=== PATIENT | male | born 1975 | race Caucasian/White ===

== ENCOUNTER 2023-02-11 10:42 | Observation (INO) ==
[2023-02-11] MEDS ORDERED: SODIUM CHLORIDE 0.9% 1000ML 1,000 ML IV STA (11:09)
--- NOTE | 2023-02-11 11:17 | Emergency Department Note ---
ED Provider Note History of Present Illness Chief Complaint: Abdominal Pain Stated Complaint: ABDOMINAL PAIN; RIB PAIN Time Seen by Provider: 02/11/23 10:58 47-year-old male who presents the emergency department with complaint of progressively worsening right lower quadrant abdominal pain. The patient reports that he started to notice some discomfort in the abdomen on Friday. He did take some ibuprofen that helped with the symptoms. The patient reports that the pain has worsened with loose stools. The patient also reports that he was recently on clindamycin antibiotics for a left foot cellulitis. There is antibiotics were started on 02/04. He reports that the foot looks much better. Patient also reports that he was also recently in to see his family doctor for symptoms concerning for Lyme disease. The patient reports that he did have testing that was negative. The patient has had chills at home, but has not checked his temperature. He currently rates his discomfort an 8 out of 10. Home Medications Medication Instructions Recorded Confirmed Type clindamycin HCl 1 cap PO TID 02/11/23 02/11/23 History multivitamin 1 tab PO DAILY 02/11/23 02/11/23 History Allergies Allergy/AdvReac Type Severity Reaction Status Date / Time No Known Allergies Allergy Verified 02/03/23 11:49 Past Med/Surg History Medical History Headache Migraine headache Surgical History No pertinent past surgical history Family History Mother Diabetes, Onset Age: 58 oral Stroke, Onset Age: 67 no sequella Grandfather (Paternal) Myocardial infarction 70 [place] Father Prostate cancer, Onset Age: 55 EDITA at age 70 Sister Stroke, Onset Age: 45 rt arm weakness and speech impediment. Grandfather (Maternal) Leukemia, Onset Age: 53 Denies family history of Ovarian cancer Breast cancer Lung cancer Hypertension Social History Smoking Status: Never smoker Second Hand Exposure: No; Do You Dip or Chew Tobacco: No; Hx Alcohol Use: No Hx Substance Use: No Preferred Language: Welsh Communication Ability: Effective Hearing Ability: Normal Vice [employer] Network Required: No marital status: Current Living Situation: Family Current Living Situation Comment: spouse and 6 children current occupational status: employed current occupation: self employed How many Children do You have: 6 Feels Safe at Home: Yes Childhood Exposure to Second-Hand Smoke: No Seatbelt Use: always Sunscreen Use: Yes Physical Exam Vital Signs Vital Signs - 24 hr 02/11/23 10:47 02/11/23 11:33 02/11/23 13:08 Temperature 36.8 C Temperature Source Temporal Artery Scan Pulse Rate 114 H Pulse Rate [Right Radial] 96 H Pulse Rhythm Regular Pulse Rhythm [Right Radial] Respiratory Rate 20 15 16 Respiratory Effort / Characteristics Non-Labored Spontaneous Non-Labored Non-Labored Respiratory Depth Normal Normal Normal Respiratory Pattern Regular Regular Blood Pressure 115/68 Blood Pressure [Right Arm] 125/78 Blood Pressure Mean 83 Blood Pressure Mean [Right Arm] 93 Blood Pressure Position [Right Arm] Pulse Oximetry 95 93 Oxygen Delivery Method Room Air Room Air Room Air Sepsis Recent Fever Within 48 Hours No Sepsis New/Unexplained Change in Mental Status N/A Sepsis Action Taken by Nursing No Action Required 02/11/23 15:02 02/11/23 15:05 Temperature 36.7 C Temperature Source Oral Pulse Rate 103 H Pulse Rate [Right Radial] 94 H Pulse Rhythm Pulse Rhythm [Right Radial] Regular Respiratory Rate 16 18 Respiratory Effort / Characteristics Non-Labored Spontaneous Respiratory Depth Normal Respiratory Pattern Regular Blood Pressure 125/67 Blood Pressure [Right Arm] 119/77 Blood Pressure Mean Blood Pressure Mean [Right Arm] 91 Blood Pressure Position [Right Arm] Lying Pulse Oximetry 98 92 Oxygen Delivery Method Room Air Room Air Sepsis Recent Fever Within 48 Hours Sepsis New/Unexplained Change in Mental Status Sepsis Action Taken by Nursing CONSTITUTIONAL: Healthy and well nourished. Patient appears in mild to moderate discomfort. HEENT: No scleral icterus or conjunctival injection. RESPIRATORY: Clear to auscultation bilaterally with no wheezing, crackles, rhonchi or stridor. CARDIOVASCULAR: Regular rate and rhythm with no murmurs, rubs or gallops. GASTROINTESTINAL: Bowel sounds present in all quadrants. Patient has a positive McBurney's point tenderness. Negative Rovsing sign, psoas/obturator sign or CVA tenderness. Positive heeltap. No abdominal rigidity, guarding or rebound. MUSCULOSKELETAL: Full range of motion of all joints without discomfort. INTEGUMENTARY: No rash or other significant dermatologic conditions noted. HEMATOLOGIC: No ecchymosis or petechiae. PSYCHIATRIC: Positive affect. NEUROLOGIC: No focal neurologic deficits noted. Course Course Patient history and physical exam were performed. Nurses notes were reviewed. Vital signs were reviewed, showing a mild tachycardia. The patient is afebrile. I did review outside medical records, showing that the patient did have a Western blot test performed, that was positive for IgM, negative IgG. Last office notes are documented on 02/03/2023, with presenting complaints of a fever that was suspected to be a viral infection. Further review of labs shows neg ative Babesia, Borrelia, Anaplasma and Ehrlichia tests. IV access was established, and labs were drawn. The patient was hydrated with a liter of normal saline. He refused any analgesics or antiemetics. Review of labs shows a notable leukocytosis with a white count of over 18,000, neutrophilic shift and no bandemia. CMP shows a mild hyponatremia of 132, elevated random glucose of 137, and total bilirubin of 2.1. LFTs and lipase are normal. Urinalysis did not show any hematuria or signs of infection. CT with IV contrast of the abdomen and pelvis shows evidence for an acute cholecystitis. Findings were discussed with Dr. Lin, our City Auditor, as well as Dr. Perez, general surgeon electronic commerce specialist today. Dr. Perez did come to the emergency department for further evaluation. Please see his dictation for further surgical treatment and disposition. I did order IV Zosyn at the time of consultation. The patient refused any further analgesics or antiemetics. Administered Medications Discontinued Medications Bupivacaine HCl/Epinephrine Bitart (Bupivacaine/Epinephrine 0.25% 1:200,000 30 Ml Vial) Confirm Administered Dose 30 ml .ROUTE .STK-MED ONE Stop: 02/11/23 15:15 Last Admin: 02/11/23 16:54 Dose: 30 ml Documented By: DAIANA Sodium Chloride (Nss 1000ml) 1,000 mls @ 999 mls/hr IV .Q1H1M STA Stop: 02/11/23 12:09 Last Infusion: 02/11/23 12:40 Dose: 999 mls/hr Documented By: JEAN MARIE Admin: 02/11/23 11:36 Dose: 999 mls/hr Documented By: JEAN MARIE Piperacillin Sod/Tazobactam Sod (Zosyn) 4.5 gm in 120 mls @ 240 mls/hr IV NOW ONE Stop: 02/11/23 14:04 Last Infusion: 02/11/23 15:06 Dose: 240 mls/hr Documented By: JEAN MARIE Admin: 02/11/23 14:11 Dose: 240 mls/hr Documented By: JEAN MARIE Ioversol (Optiray 350 500ml) 89 ml IV ONCE ONE Stop: 02/11/23 13:01 Last Admin: 02/11/23 13:00 Dose: 89 ml Documented By: ABA Medical Decision Making Medical Records Attestation: I reviewed the patient's medical records. Home Medications was personally reviewed by wy Laboratory Data Attestation: I reviewed the patient's lab results. 02/11/23 11:27 02/11/23 11:27 Lab Results 02/11/23 02/11/23 02/11/23 Range/Units 11:27 11:27 13:05 WBC 18.46 H (4.8-10.8) K/ul RBC 4.19 L (4.70-6.10) M/uL Hgb 13.2 L (14.0-18.0) g/dl Hct 37.4 L (42.0-52.0) % MCV 89.3 (80.0-100.0) fL MCH 31.5 (25.0-34.0) pg MCHC 35.3 (32.0-36.0) g/dL RDW Std Deviation 41.6 (36.4-46.3) fL RDW Coeff of Akanksha 12.7 (11.5-14.5) % Plt Count 326 (130-400) K/uL MPV 9.1 L (9.4-12.4) fL Immature Gran % (Auto) 0.7 % Neut % (Auto) 86.7 % Lymph % (Auto) 7.1 % [place] % (Auto) 5.2 % Eos % (Auto) 0.1 % Baso % (Auto) 0.2 % Neut # (Auto) 16.02 H (1.40-6.50) K/uL Lymph # (Auto) 1.31 (1.2-3.4) K/uL [place] # (Auto) 0.96 H (0.11-0.59) K/uL Eos # (Auto) 0.01 (0-0.50) K/uL Baso # (Auto) 0.03 (0-0.2) K/uL Immature Gran # (Auto) 0.13 (0.01-0.20) K/uL Sodium 132 L (136-145) mmol/L Potassium 4.2 (3.5-5.1) mmol/L Chloride 98 (98-107) mmol/L Carbon Dioxide 25 (21-32) mmol/L Anion Gap 9 (3-11) BUN 15 (6-23) mg/dl Creatinine 1.09 (0.6-1.4) mg/dl Est Cr Clr Drug Dosing 104.9 ml/min Est GFR ( Amer) 93.8 ml/min Est GFR (Non-Af Amer) 81.0 ml/min BUN/Creatinine Ratio 13.8 (10-20) Glucose 137 H (70-99(Fasting)) mg/dl Calcium 9.2 (8.6-10.3) mg/dl Total Bilirubin 2.1 H (0.2-1.0) mg/dl AST 18 (13-39) U/L ALT 32 (7-52) U/L Alkaline Phosphatase 65 (34-104) U/L Total Protein 7.6 (6.0-8.3) gm/dl Albumin 4.0 (3.4-5.0) gm/dl Globulin 3.6 (2.5-4.0) gm/dl Albumin/Globulin Ratio 1.1 (0.9-2) Lipase 30 (11-82) U/L Urine Color [place] Urine Appearance Cloudy A (Clear) Urine pH 5.5 (4.5-7.5) Ur Specific [place] 1.020 (1.000-1.030) Urine Protein 1+ H (Negative) Urine Glucose (UA) Negative (Negative) Urine Ketones Negative (Negative) Urine Blood Negative (Negative) Urine Nitrite Negative (Negative) Urine Bilirubin Negative (Negative) Urine Urobilinogen Negative (Negative) Ur Leukocyte Esterase Negative (Negative) Urine WBC (Auto) 1-5 (0-5) /hpf Urine RBC (Auto) 5-10 H (0-4) /hpf U Hyaline Cast (Auto) 10-30 H (0-5) /lpf U Epithel Cells (Auto) 10-20 H (0-5) /lpf Urine Bacteria (Auto) Negative (Negative) SARS-CoV-2, RNA, NAAT (NEGATIVE) 02/11/23 Range/Units Unknown WBC (4.8-10.8) K/ul RBC (4.70-6.10) M/uL Hgb (14.0-18.0) g/dl Hct (42.0-52.0) % MCV (80.0-100.0) fL MCH (25.0-34.0) pg MCHC (32.0-36.0) g/dL RDW Std Deviation (36.4-46.3) fL RDW Coeff of Akanksha (11.5-14.5) % Plt Count (130-400) K/uL MPV (9.4-12.4) fL Immature Gran % (Auto) % Neut % (Auto) % Lymph % (Auto) % [place] % (Auto) % Eos % (Auto) % Baso % (Auto) % Neut # (Auto) (1.40-6.50) K/uL Lymph # (Auto) (1.2-3.4) K/uL [place] # (Auto) (0.11-0.59) K/uL Eos # (Auto) (0-0.50) K/uL Baso # (Auto) (0-0.2) K/uL Immature Gran # (Auto) (0.01-0.20) K/uL Sodium (136-145) mmol/L Potassium (3.5-5.1) mmol/L Chloride (98-107) mmol/L Carbon Dioxide (21-32) mmol/L Anion Gap (3-11) BUN (6-23) mg/dl Creatinine (0.6-1.4) mg/dl Est Cr Clr Drug Dosing ml/min Est GFR ( Amer) ml/min Est GFR (Non-Af Amer) ml/min BUN/Creatinine Ratio (10-20) Glucose (70-99(Fasting)) mg/dl Calcium (8.6-10.3) mg/dl Total Bilirubin (0.2-1.0) mg/dl AST (13-39) U/L ALT (7-52) U/L Alkaline Phosphatase (34-104) U/L Total Protein (6.0-8.3) gm/dl Albumin (3.4-5.0) gm/dl Globulin (2.5-4.0) gm/dl Albumin/Globulin Ratio (0.9-2) Lipase (11-82) U/L Urine Color Urine Appearance (Clear) Urine pH (4.5-7.5) Ur Specific [place] (1.000-1.030) Urine Protein (Negative) Urine Glucose (UA) (Negative) Urine Ketones (Negative) Urine Blood (Negative) Urine Nitrite (Negative) Urine Bilirubin (Negative) Urine Urobilinogen (Negative) Ur Leukocyte Esterase (Negative) Urine WBC (Auto) (0-5) /hpf Urine RBC (Auto) (0-4) /hpf U Hyaline Cast (Auto) (0-5) /lpf U Epithel Cells (Auto) (0-5) /lpf Urine Bacteria (Auto) (Negative) SARS-CoV-2, RNA, NAAT NEGATIVE (NEGATIVE) Imaging Data Attestation: I personally reviewed and interpreted this imaging study as follows: My Impression: My interpretation of the CT with IV contrast of the abdomen and pelvis shows evidence for acute cholecystitis. No evidence for pancreatitis, appendicitis, bowel obstruction or free air. Radiologist report was also reviewed with concurrence. Radiologist's Impression: Abdomen/Pelvis CT 02/11/23 11:[address] WITH IV CONTRAST CT DOSE: 1687.20 mGy.cm HISTORY: Right lower quadrant abdominal pain. TECHNIQUE: Multiaxial CT images of the abdomen and pelvis were performed following the use of intravenous contrast. A dose lowering technique was utilized adhering to the principles of ALARA. COMPARISON STUDY: None. FINDINGS: Bibasilar densities most pronounced within the right lower lobe. These favor atelectasis. A pneumonia could also have a similar appearance. No pneumoperitoneum. No pneumatosis. 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 There is a 2.5 cm diverticulum at the distal duodenum. Hepatic steatosis. The main portal vein is patent. The spleen, adrenal glands, pancreas, and kidneys are unremarkable. No hydronephrosis. Mild periportal lymphadenopathy. This is likely reactive. No retroperitoneal lymphadenopathy. Normal caliber abdominal aorta. There is trace ascites noted. The gallbladder is distended and demonstrates a diffusely thickened wall with pericholecystic fluid and inflammatory change. This is consistent with an acute cholecystitis. There are few small gallstones identified. Normal caliber common bile duct. There is thickening within the adjacent hepatic flexure of the colon and duodenum. This likely reactive to the suspected acute cholecystitis. No evidence for a bowel obstruction. Normal bladder. Normal appendix. IMPRESSION: 1. Above findings consistent with acute cholecystitis. Urgent surgical consultation recommended. 2. Thickening within the adjacent hepatic flexure of the colon and duodenum is likely reactive. 3. Bibasilar densities are nonspecific but favor atelectasis. A pneumonia could also have a similar appearance. 4. Hepatic steatosis. 5. Trace ascites. ACT 112: Negative or not required by law. Electronically signed by: Sy Garcia M.D. 02/11/2023 1:23 PM MDM Narrative See ED Course section for further details of today's visit. The patient presents with complaint of right lower quadrant abdominal pain that seems to be worsened with ambulation and movement. Clinical examination was concerning for acute appendicitis. CT with IV contrast of the abdomen and pelvis was performed, showing evidence for acute cholecystitis. Laboratory studies that show a slightly elevated bilirubin, otherwise lipase is normal, therefore I do not suspect cholecystitis. Choledocholithiasis was also considered. Urinalysis does not show hematuria or signs of infection, and without any hydronephrosis on CT imaging, I do not suspect obstructive uropathy or pyelonephritis. Impression Acute cholecystitis Discharge Plan Visit Data Chief Complaint: Abdominal Pain Stated Complaint: ABDOMINAL PAIN; RIB PAIN ED Provider: Daniel Lin ED Midlevel Provider: Angelo King Discharge Problem: Acute cholecystitis Patient Disposition: Admitted As Inpatient Discharge Instructions Interventions: ED Discharge Assessment Last Done: 02/11/23 15:02
[2023-02-11 11:46] LABS: Basophils # (auto) 0.03 K/uL (0-0.2); Basophils % (auto) 0.2 %; Eosinophils # (auto) 0.01 K/uL (0-0.50); Eosinophils % (auto) 0.1 %; Hematocrit (blood only) 37.4 % (42.0-52.0); Hemoglobin 13.2 g/dl (14.0-18.0); Immature Granulocytes # (auto) 0.13 K/uL (0.01-0.20); Immature Granulocytes % (auto) 0.7 %; Lymphocytes # (auto) 1.31 K/uL (1.2-3.4); Lymphocytes % (auto) 7.1 %; Mean Corpuscular Hemoglobin 31.5 pg (25.0-34.0); Mean Corpuscular Hgb Conc 35.3 g/dL (32.0-36.0); Mean Corpuscular Volume 89.3 fL (80.0-100.0); Mean Platelet Volume 9.1 fL (9.4-12.4); Monocytes # (auto) 0.96 K/uL (0.11-0.59); Monocytes % (auto) 5.2 %; Neutrophils # (auto) 16.02 K/uL (1.40-6.50); Neutrophils % (auto) 86.7 %; Platelet Count 326 K/uL (130-400); RDW Coefficient of Variation 12.7 % (11.5-14.5); RDW Standard Deviation 41.6 fL (36.4-46.3); Red Blood Count 4.19 M/uL (4.70-6.10); White Blood Count 18.46 K/ul (4.8-10.8)
[2023-02-11 12:26] LABS: Albumin Globulin Ratio 1.1 (0.9-2); BUN Creatinine Ratio 13.8 (10-20); Bilirubin,Total 2.1 mg/dl (0.2-1.0); Calcium 9.2 mg/dl (8.6-10.3); Creatinine Clr Calc Pharmacy 104.9 ml/min; Est GFR (African American) 93.8 ml/min; Globulin 3.6 gm/dl (2.5-4.0); Potassium 4.2 mmol/L (3.5-5.1); Total Protein 7.6 gm/dl (6.0-8.3)
[2023-02-11] MEDS ORDERED: OPTIRAY 350 500ml IV ONE (13:00)
[2023-02-11 13:23] LABS: Appearance Urine Cloudy (Clear); Bacteria Urine Automated Negative (Negative); Bilirubin Urine Negative (Negative); Blood Urine Negative (Negative); Color Urine Orange; Glucose Urine UA Negative (Negative); Ketones Urine Negative (Negative); Leukocyte Esterase Urine Negative (Negative); Nitrite Urine Negative (Negative); Protein Urine 1+ (Negative); Urobilinogen Urine Negative (Negative); pH Urine 5.5 (4.5-7.5)
--- NOTE | 2023-02-11 13:24 | CT Scan Report ---
ABDOMEN AND PELVIS CT WITH IV CONTRAST CT DOSE: 1687.20 mGy.cm HISTORY: Right lower quadrant abdominal pain. TECHNIQUE: Multiaxial CT images of the abdomen and pelvis were performed following the use of intrave nous contrast. A dose lowering technique was utilized adhering to the principles of ALARA. COMPARISON STUDY: None. FINDINGS: Bibasilar densities most pronounced within the right lower lobe. These favor atelectasis. A pneumonia could also have a similar appearance. No pneumoperitoneum. No pneumatosis. Bilateral L5 sp ondylolysis with associated grade 1 anterolisthesis. There is a 2.5 cm diverticulum at the distal duo denum. Hepatic steatosis. The main portal vein is patent. The spleen, adrenal glands, pancreas, and k idneys are unremarkable. No hydronephrosis. Mild periportal lymphadenopathy. This is likely reactive. No retroperitoneal lymphadenopathy. Normal caliber abdominal aorta. There is trace ascites noted. Th e gallbladder is distended and demonstrates a diffusely thickened wall with pericholecystic fluid and inflammatory change. This is consistent with an acute cholecystitis. There are few small gallstones identified. Normal caliber common bile duct. There is thickening within the adjacent hepatic flexure of the colon and duodenum. This likely reactive to the suspected acute cholecystitis. No evidence for a bowel obstruction. Normal bladder. Normal appendix. IMPRESSION: 1. Above findings consistent with acute cholecystitis. Urgent surgical consultation recommended. 2. Thickening within the adjacent hepatic flexure of the colon and duodenum is likely reactive. 3. Bibasilar densities are nonspecific but favor atelectasis. A pneumonia could also have a similar a ppearance. 4. Hepatic steatosis. 5. Trace ascites. ACT 112: Negative or not required by law. Electronically signed by: Sy Garcia M.D. 02/11/2023 1:23 PM
[2023-02-11] MEDS ORDERED: PIPERACILLIN/TAZOBACTAM 4.5 GM/120 ML BAG IV ONE (13:35)
[2023-02-11] MEDS ORDERED: MIDAZOLAM HCL 1 MG/ML 2ML VIAL ONE (15:08)
[2023-02-11] MEDS ORDERED: LIDOCAINE 2% 2 ML VIAL/AMP(20MG/ML) INFIL ONE (15:08)
[2023-02-11] MEDS ORDERED: ROCURONIUM BROMIDE 10 MG/ML 5 ML VIAL IV ONE ×6 (15:08→16:09)
[2023-02-11] MEDS ORDERED: PROPOFOL IV EMULSION 10 MG/ML 20 ML VIAL IV ONE (15:08)
[2023-02-11] MEDS ORDERED: fentaNYL citrate PF 100 MCG/2 ML VIAL ONE ×2 (15:08→16:08)
--- NOTE | 2023-02-11 15:11 | History & Physical Report ---
Date of Service February 11, 2023 Assessment & Plan (1) Acute cholecystitis: Plan 47-year-old gentleman with severe acute cholecystitis. We discussed the risks and benefits of a laparoscopic, possible open cholecystectomy. All his questions were answered, he is agreeable to proceed. Consent has been obtained. We will take him to the operating room at the earliest possible convenience. History of Present Illness Primary Care Provider: Armando Mo MD 47-year-old gentleman with no significant past medical history presents to the emergency department with approximately 1 week history of right upper quadrant and epigastric abdominal pain. The pain worsened significantly on Friday. Has been worsening since then. He states that he had fevers and chills approxim ately 2 weeks ago. He did have a cellulitis of his left lower extremity which was treated with clindamycin. He states that he thought some of his abdominal pain was due to the clindamycin. He denies nausea, vomiting, fevers or chills currently. He has not been eating a lot, last ate yesterday. White blood cell count is 18. CT scan demonstrates severe acute cholecystitis. Allergies Allergy/AdvReac Type Severity Reaction Status Date / Time No Known Allergies Allergy Verified 02/03/23 11:49 Home Medications Medication Instructions Recorded Confirmed Type clindamycin HCl 1 cap PO TID 02/11/23 02/11/23 History multivitamin 1 tab PO DAILY 02/11/23 02/11/23 History Past Med/Surg History Medical History Headache Migraine headache Surgical History No pertinent past surgical history Family History Mother Diabetes, Onset Age: 58 oral Stroke, Onset Age: 67 no sequella Grandfather (Paternal) Myocardial infarction 70 [place] Father Prostate cancer, Onset Age: 55 EDITA at age 70 Sister Stroke, Onset Age: 45 rt arm weakness and speech impediment. Grandfather (Maternal) Leukemia, Onset Age: 53 Denies family history of Ovarian cancer Breast cancer Lung cancer Hypertension Social History Smoking Status: Never smoker Second Hand Exposure: No; Do You Dip or Chew Tobacco: No; Hx Alcohol Use: No Hx Substance Use: No Preferred Language: Welsh Communication Ability: Effective Hearing Ability: Normal Infant Caregiver Required: No marital status: Current Living Situation: Family Current Living Situation Comment: spouse and 6 children current occupational status: employed current occupation: self employed How many Children do You have: 6 Feels Safe at Home: Yes Childhood Exposure to Second-Hand Smoke: No Seatbelt Use: always Sunscreen Use: Yes Review of Systems Review of Systems: All systems reviewed & are unremarkable except as noted in HPI & below Physical Exam Constitutional: WD/WN, vitals as above Eyes: PERRL, conjunctivae normal, anicteric sclerae Neck: trachea midline, no thyromegaly Respiratory: normal respiratory effort; no respiratory distress and no labored breathing Cardiovascular: Rate/Rhythm: regular rate and regular rhythm Gastrointestinal (Abdomen): Inspection/Auscultation: abdomen normal to inspection; abdomen not distended Percussion/Palpation: + abdomen tender (RUQ/epigastrium/RLQ), + guarding (Voluntary in right upper quadrant) and abdomen soft; abdomen not rigid Skin: no rashes, warm and dry Psychiatric: A+Ox3, euthymic affect Results & Data Results & Data Vital Signs (Past 12 Hours) Vital Signs Temp Pulse Pulse Resp BP BP Pulse Ox 02/11/23 15:05 36.7 C 94 H 18 119/77 92 02/11/23 15:02 103 H 16 125/67 98 02/11/23 13:08 96 H 16 125/78 93 02/11/23 11:33 15 02/11/23 10:47 36.8 C 114 H 20 115/68 95 O2 Del Method 02/11/23 15:05 Room Air 02/11/23 15:02 Room Air 02/11/23 13:08 Room Air 02/11/23 11:33 Room Air 02/11/23 10:47 Room Air Laboratory Results 02/11/23 02/11/23 02/11/23 Range/Units Unknown 13:05 11:27 WBC (4.8-10.8) K/ul RBC (4.70-6.10) M/uL Hgb (14.0-18.0) g/dl Hct (42.0-52.0) % MCV (80.0-100.0) fL MCH (25.0-34.0) pg MCHC (32.0-36.0) g/dL RDW Std Deviation (36.4-46.3) fL RDW Coeff of Akanksha (11.5-14.5) % Plt Count (130-400) K/uL MPV (9.4-12.4) fL Immature Gran % (Auto) % Neut % (Auto) % Lymph % (Auto) % [place] % (Auto) % Eos % (Auto) % Baso % (Auto) % Neut # (Auto) (1.40-6.50) K/uL Lymph # (Auto) (1.2-3.4) K/uL [place] # (Auto) (0.11-0.59) K/uL Eos # (Auto) (0-0.50) K/uL Baso # (Auto) (0-0.2) K/uL Immature Gran # (Auto) (0.01-0.20) K/uL Sodium 132 L (136-145) mmol/L Potassium 4.2 (3.5-5.1) mmol/L Chloride 98 (98-107) mmol/L Carbon Dioxide 25 (21-32) mmol/L Anion Gap 9 (3-11) BUN 15 (6-23) mg/dl Creatinine 1.09 (0.6-1.4) mg/dl Est Cr Clr Drug Dosing 104.9 ml/min Est GFR ( Amer) 93.8 ml/min Est GFR (Non-Af Amer) 81.0 ml/min BUN/Creatinine Ratio 13.8 (10-20) Glucose 137 H (70-99(Fasting)) mg/dl Calcium 9.2 (8.6-10.3) mg/dl Total Bilirubin 2.1 H (0.2-1.0) mg/dl AST 18 (13-39) U/L ALT 32 (7-52) U/L Alkaline Phosphatase 65 (34-104) U/L Total Protein 7.6 (6.0-8.3) gm/dl Albumin 4.0 (3.4-5.0) gm/dl Globulin 3.6 (2.5-4.0) gm/dl Albumin/Globulin Ratio 1.1 (0.9-2) Lipase 30 (11-82) U/L Urine Color [place] Urine Appearance Cloudy A (Clear) Urine pH 5.5 (4.5-7.5) Ur Specific [place] 1.020 (1.000-1.030) Urine Protein 1+ H (Negative) Urine Glucose (UA) Negative (Negative) Urine Ketones Negative (Negative) Urine Blood Negative (Negative) Urine Nitrite Negative (Negative) Urine Bilirubin Negative (Negative) Urine Urobilinogen Negative (Negative) Ur Leukocyte Esterase Negative (Negative) Urine WBC (Auto) 1-5 (0-5) /hpf Urine RBC (Auto) 5-10 H (0-4) /hpf U Hyaline Cast (Auto) 10-30 H (0-5) /lpf U Epithel Cells (Auto) 10-20 H (0-5) /lpf Urine Bacteria (Auto) Negative (Negative) SARS-CoV-2, RNA, NAAT NEGATIVE (NEGATIVE) 02/11/23 Range/Units 11:27 WBC 18.46 H (4.8-10.8) K/ul RBC 4.19 L (4.70-6.10) M/uL Hgb 13.2 L (14.0-18.0) g/dl Hct 37.4 L (42.0-52.0) % MCV 89.3 (80.0-100.0) fL MCH 31.5 (25.0-34.0) pg MCHC 35.3 (32.0-36.0) g/dL RDW Std Deviation 41.6 (36.4-46.3) fL RDW Coeff of Akanksha 12.7 (11.5-14.5) % Plt Count 326 (130-400) K/uL MPV 9.1 L (9.4-12.4) fL Immature Gran % (Auto) 0.7 % Neut % (Auto) 86.7 % Lymph % (Auto) 7.1 % [place] % (Auto) 5.2 % Eos % (Auto) 0.1 % Baso % (Auto) 0.2 % Neut # (Auto) 16.02 H (1.40-6.50) K/uL Lymph # (Auto) 1.31 (1.2-3.4) K/uL [place] # (Auto) 0.96 H (0.11-0.59) K/uL Eos # (Auto) 0.01 (0-0.50) K/uL Baso # (Auto) 0.03 (0-0.2) K/uL Immature Gran # (Auto) 0.13 (0.01-0.20) K/uL Sodium (136-145) mmol/L Potassium (3.5-5.1) mmol/L Chloride (98-107) mmol/L Carbon Dioxide (21-32) mmol/L Anion Gap (3-11) BUN (6-23) mg/dl Creatinine (0.6-1.4) mg/dl Est Cr Clr Drug Dosing ml/min Est GFR ( Amer) ml/min Est GFR (Non-Af Amer) ml/min BUN/Creatinine Ratio (10-20) Glucose (70-99(Fasting)) mg/dl Calcium (8.6-10.3) mg/dl Total Bilirubin (0.2-1.0) mg/dl AST (13-39) U/L ALT (7-52) U/L Alkaline Phosphatase (34-104) U/L Total Protein (6.0-8.3) gm/dl Albumin (3.4-5.0) gm/dl Globulin (2.5-4.0) gm/dl Albumin/Globulin Ratio (0.9-2) Lipase (11-82) U/L Urine Color Urine Appearance (Clear) Urine pH (4.5-7.5) Ur Specific [place] (1.000-1.030) Urine Protein (Negative) Urine Glucose (UA) (Negative) Urine Ketones (Negative) Urine Blood (Negative) Urine Nitrite (Negative) Urine Bilirubin (Negative) Urine Urobilinogen (Negative) Ur Leukocyte Esterase (Negative) Urine WBC (Auto) (0-5) /hpf Urine RBC (Auto) (0-4) /hpf U Hyaline Cast (Auto) (0-5) /lpf U Epithel Cells (Auto) (0-5) /lpf Urine Bacteria (Auto) (Negative) SARS-CoV-2, RNA, NAAT (NEGATIVE) Diagnostic Findings ABDOMEN AND PELVIS CT WITH IV CONTRAST CT DOSE: 1687.20 mGy.cm HISTORY: Right lower quadrant abdominal pain. TECHNIQUE: Multiaxial CT images of the abdomen and pelvis were performed following the use of intravenous contrast. A dose lowering technique was utilized adhering to the principles of ALARA. COMPARISON STUDY: None. FINDINGS: Bibasilar densities most pronounced within the right lower lobe. These favor atelectasis. A pneumonia could also have a similar appearance. No pneumoperitoneum. No pneumatosis. 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 There is a 2.5 cm diverticulum at the distal duodenum. Hepatic steatosis. The main portal vein is patent. The spleen, adrenal glands, pancreas, and kidneys are unremarkable. No hydronephrosis. Mild periportal lymphadenopathy. This is likely reactive. No retroperitoneal lymphadenopathy. Normal caliber abdominal aorta. There is trace ascites noted. The gallbladder is distended and demonstrates a diffusely thickened wall with pericholecystic fluid and inflammatory change. This is consistent with an acute cholecystitis. There are few small gallstones identified. Normal caliber common bile duct. There is thickening within the adjacent hepatic flexure of the colon and duodenum. This likely reactive to the suspected acute cholecystitis. No evidence for a bowel obstruction. Normal bladder. Normal appendix. IMPRESSION: 1. Above findings consistent with acute cholecystitis. Urgent surgical consultation recommended. 2. Thickening within the adjacent hepatic flexure of the colon and duodenum is likely reactive. 3. Bibasilar densities are nonspecific but favor atelectasis. A pneumonia could also have a similar appearance. 4. Hepatic steatosis. 5. Trace ascites.
[2023-02-11] MEDS ORDERED: BUPIVACAINE/EPINEPHRINE 0.25% 1:200,000 30 ML VIAL ONE (15:14)
[2023-02-11] MEDS ORDERED: ePHEDrine sulfate 50 MG/ML AMP IV PRN (15:28)
[2023-02-11] MEDS ORDERED: ONDANSETRON INJ 2 MG/ML 2 ML VIAL IV PRN ×2 (15:28→18:45)
[2023-02-11] MEDS ORDERED: ATROPINE SULFATE 0.1 MG/ML 10ML SYR IV PRN (15:28)
[2023-02-11] MEDS ORDERED: ACETAMINOPHEN 1000 MG/100 ML IV IV ONE (15:28)
[2023-02-11] MEDS ORDERED: HYDROmorphone INJ 2 MG/ML SYR/VIAL IV PRN (15:28)
[2023-02-11] MEDS ORDERED: fentaNYL citrate PF 100 MCG/2 ML VIAL IV PRN (15:28)
--- NOTE | 2023-02-11 15:28 | Anesthesiology Consultation ---
Date of Service February 11, 2023 Assessment & Plan ASA [id number] Proposed Anesthesia Anesthesia Type: General Risk / Benefits Reviewed With: PT / POA / Parent / Guardian, Accepts Plan and Informed Consent Obtained History Surgery Operation Date: 02/11/23 11:25 Proposed Procedures p Laparoscopic Cholecystectomy Possible Open - Antonio Perez MD Height/Weight Height: 5 ft 11 in Weight: 106.1 kg Allergies Allergy/AdvReac Type Severity Reaction Status Date / Time No Known Allergies Allergy Verified 02/03/23 11:49 Medications Home Medications Medication Instructions Recorded Confirmed Last Taken clindamycin HCl 1 cap PO TID 02/11/23 02/11/23 02/11/23 multivitamin 1 tab PO DAILY 02/11/23 02/11/23 Unknown NPO Date Last Intake of Fluids: 02/11/23 Time Last Intake of Fluids: 07:00 Date Last Intake of Solids: 02/11/23 Time Last Intake of Solids: 07:00 Past Medical History Medical History Headache Migraine headache Exercise / Class Metabolic Activity II 4-5 Yardwork/Stairs/Walk up hill Past Family History Family History Mother Diabetes, Onset Age: 58 oral Stroke, Onset Age: 67 no sequella Grandfather (Paternal) Myocardial infarction 70 [place] Father Prostate cancer, Onset Age: 55 EDITA at age 70 Sister Stroke, Onset Age: 45 rt arm weakness and speech impediment. Grandfather (Maternal) Leukemia, Onset Age: 53 Denies family history of Ovarian cancer Breast cancer Lung cancer Hypertension Past Surgical History Surgical History No pertinent past surgical history Past Anesthesia History No Hx of Anesthesia Complications and No Family Hx of Anesthesia Complications History of PONV No Hx of PONV and No Hx of Motion Sickness Social History Smoking Status: Never smoker Do You Dip or Chew Tobacco: No Hx Alcohol Use: No Hx Substance Use: No Review of Systems denies fever/cough/ colds/ chest pain/ SOB/ PARTH denies PARTH Physical Exam Vital Signs Last Vital Signs Temp 36.7 C 02/11/23 15:05 Pulse 94 H 02/11/23 15:05 Resp 18 02/11/23 15:05 BP 119/77 08/08/23 15:05 Pulse Ox 92 02/11/23 15:05 O2 Del Method Room Air 02/11/23 15:05 ENMT Mouth: no TMJ abnormality and no dentition abnormality Thyromental Distance: > or= 3.5 Finger Breadths Mallampati Class: II Neck neck extension not limited Respiratory normal respiratory effort; no respiratory distress Auscultation: lungs clear to auscultation bilaterally Cardiovascular Rate/Rhythm: regular rate and regular rhythm Neurologic moves all extremities Psychiatric Orientation: alert and oriented x 3 Testing Laboratory Results 02/11/23 11:27 02/11/23 11:27 Urine Color [place] 02/11/23 13:05 Urine Appearance Cloudy (Clear) A 02/11/23 13:05 Urine pH 5.5 (4.5-7.5) 02/11/23 13:05 Ur Specific [place] 1.020 (1.000-1.030) 02/11/23 13:05 Urine Protein 1+ (Negative) H 02/11/23 13:05 Urine Glucose (UA) Negative (Negative) 02/11/23 13:05 Urine Ketones Negative (Negative) 02/11/23 13:05 Urine Nitrite Negative (Negative) 02/11/23 13:05 Ur Leukocyte Esterase Negative (Negative) 02/11/23 13:05 Urine WBC (Auto) 1-5 /hpf (0-5) 02/11/23 13:05 Urine RBC (Auto) 5-10 /hpf (0-4) H 02/11/23 13:05 U Hyaline Cast (Auto) 10-30 /lpf (0-5) H 02/11/23 13:05 U Epithel Cells (Auto) 10-20 /lpf (0-5) H 02/11/23 13:05 Urine Bacteria (Auto) Negative (Negative) 02/11/23 13:05
[2023-02-11] MEDS ORDERED: ONDANSETRON INJ 2 MG/ML 2 ML VIAL ONE (16:09)
[2023-02-11] MEDS ORDERED: DEXAMETHASONE SOD INJ 4 MG/ML VIAL ONE ×2 (16:09)
[2023-02-11] MEDS ORDERED: SUGAMMADEX SODIUM 200 MG/2 ML VIAL IV ONE (16:54)
--- NOTE | 2023-02-11 16:59 | Post Operative Brief Note ---
Immediate Post Op Note v1 Date of Surgery February 11, 2023 Pre & Post Diagnosis Operation Date: 02/11/23 11:25 Pre-Op Diagnosis: Acute cholecystitis Post-Op Diagnosis: Acute cholecystitis I identified the patient and participated in the time-out.: Yes Procedure Operation Date: 02/11/23 11:25 Actual Procedures p Laparoscopic Cholecystectomy(Not Applicable) - Antonio Perez MD Surgeon Antonio Perez MD Salon/Spa Manager BETH Marti assisted with tissue retraction, camera op, closure Estimated Blood Loss 15 Findings Consistent with Post-Op Diagnosis Severe acute cholecystitis with gallbladder full of purulent fluid Drains Venkat-Adams Drain
[2023-02-11] MEDS ORDERED: HYDROmorphone INJ 2 MG/ML SYR/VIAL ONE (17:03)
--- NOTE | 2023-02-11 17:04 | Operative Report ---
Post Operative Report Pre & Post Diagnosis Operation Date: 02/11/23 11:25 Pre-Op Diagnosis: Acute cholecystitis Post-Op Diagnosis: Acute cholecystitis I identified the patient and participated in the time-out.: Yes Procedure Operation Date: 02/11/23 11:25 Actual Procedures p Laparoscopic Cholecystectomy(Not Applicable) - Antonio Peerz MD Surgeon Antonio Perez MD Taker Off Braker Machine BETH Marti assisted with tissue retraction, camera op, closure Estimated Blood Loss 15 Findings Consistent with Post-Op Diagnosis Severe acute gangrenous cholecystitis with pus contained within the gallbladder; purulent fluid throughout the right upper quadrant Specimens Gallbladder Drains 15 Korean round WAI Anesthesia Type General Complications No immediate complications Description of Procedure The patient was taken to the operating room, and placed supine on the operating table. A timeout was performed, perioperative antibiotics were administered, SCD boots were placed. After adequate anesthesia and analgesia was obtained, the abdomen was prepped and draped in the normal sterile fashion. Local anesthetic was injected into and around the proposed incision sites. An incision was made with a 15 blade scalpel in the supraumbilical region and carried down to the level of the fascia. The fascia was grasped with a trach hook, and a varies needle was used to enter the abdominal cavity. The abdomen was insufflated to a pressure of 15 mmHg, and a 11 mm trocar was placed in this location. A 10 mm, 30 degree laparoscope was placed into the abdominal cavity, and the abdomen was surveyed. The omentum was adhesed to the liver edge and the abdominal wall in the right upper quadrant. There was a significant amount of frankly purulent fluid contained within the right upper quadrant around the liver. Two 5 mm trochars were placed along the right costal margin, and one 5 mm trocar was placed in the subxiphoid region under direct visualization. The patient was placed in reverse Trendelenburg and slightly to the left. The adhesions of the omentum to the liver edge and intra-abdominal wall were taken down with the suction dissector and judicious use of the cautery. This exposed the top of the gallbladder. It was taut and gangrenous. The gallbladder was drained of purulent fluid with an 18-gauge aspiration needle. The gallbladder was grasped and retracted cephalad and laterally. The gallbladder was very difficult to grasp due to the gangrenous nature of it and some holes were placed in the gallbladder wall yielding more purulent drainage from the gallbladder. This was suctioned free. Adhesions of the omentum to the gallbladder wall were taken down with blunt dissection. We obtained the level of the triangle of [place]. Dissection began in the triangle with a combination of blunt dissection with the [place] dissector, and judicious use of the hook cautery. The cystic duct and cystic artery were dissected free circumferentially, and a critical view of safety was obtained. The cystic duct and cystic artery were clipped and transected, and the gallbladder was removed from the gallbladder fossa with the hook cautery. There was severe inflammation of the gallbladder wall to the liver. Once the gallbladder was removed, the camera was switched to a 5 mm, the gallbladder was placed in an Endo Catch bag, and removed via the supraumbilical port site. The camera was switched back to the 10 mm camera, and the abdomen was surveyed again. Hemostasis was checked and attended, and was excellent. The abdomen was copiously irrigated and suctioned free. Again hemostasis was checked and was excellent. A 15 [place] round WAI drain was placed into the abdomen through the lateral port site. It was maneuvered into the gallbladder fossa and Morison's pouch. It was secured with a 2-0 nylon suture. All trochars were removed under direct visualization. The abdomen was desufflated. The fascia in the 11 mm port site was closed with a 0 Vicryl suture. The skin was closed with a running 4-0 Monocryl subcuticular stitch. Dermabond was applied. The patient tolerated the procedure without complication, and was transferred in stable condition to the PACU. All instrument, needle, and sponge counts were correct at the end of the case. My magistrate assistant was necessary throughout the procedure for tissue retraction, possible camera operation, and closure of the wounds. I understand that section 1842(b)(7)(D) of the Social Security act generally prohibits Medicare physician fee schedule payment for the services of assistants at surgery in teaching hospitals when qualified residents are available to furnish such services. I certify that the services for which payment is claimed were medically necessary and that no qualified resident was available to perform the services. I further understand that these services are subject to postpayment review by the Medicare carrier. I attest to the content of the Intraoperative Record and any orders documented therein. Any exceptions are noted below.
[2023-02-11] MEDS ORDERED: ALBUTEROL HFA 8 GM INHALER INH ONE (17:21)
--- NOTE | 2023-02-11 18:12 | Anesthesiology Progress Note ---
Date of Service February 11, 2023 Anesthesia Post Procedure Vital Signs Vital Signs: Temp Pulse Pulse Pulse Resp BP BP 02/11/23 18:10 36.5 C 92 H 16 115/66 02/11/23 18:00 92 H 17 126/72 02/11/23 17:50 95 H 15 116/62 02/11/23 17:40 100 H 17 113/66 02/11/23 17:31 36.8 C 101 H 17 117/64 02/11/23 15:05 36.7 C 94 H 18 02/11/23 15:02 103 H 16 125/67 02/11/23 13:08 96 H 16 02/11/23 11:33 15 02/11/23 10:47 36.8 C 114 H 20 115/68 BP Pulse Ox O2 Del Method O2 Flow Rate 02/11/23 18:10 91 Nasal Cannula 5 02/11/23 18:00 93 Oxymask 6 02/11/23 17:50 93 Oxymask 10 02/11/23 17:40 90 Oxymask 15 02/11/23 17:31 92 Oxymask 15 02/11/23 15:05 119/77 92 Room Air 02/11/23 15:02 98 Room Air 02/11/23 13:08 125/78 93 Room Air 02/11/23 11:33 Room Air 02/11/23 10:47 95 Room Air Pain Intensity Abdomen: Pain Intensity: 2 Transfer of Care Handoff Completed per policy Notes Mental Status: alert / awake / arousable Patient Amnestic to Procedure: Yes Nausea / Vomiting: adequately controlled Pain: adequately controlled Airway Patency, RR, SpO2: stable & adequate BP & HR: stable & adequate Hydration State: stable & adequate Anesthetic Complications: no major complications apparent
[2023-02-11] MEDS ORDERED: PROMETHAZINE HCL 12.5 MG in SODIUM CHLORIDE 0.9% 50 ML IV PRN (18:45)
[2023-02-11] MEDS ORDERED: KETOROLAC 30 MG/ML VIAL IV PRN (18:45)
[2023-02-11] MEDS ORDERED: MoRPHine SULFATE 4 MG/ML 1 ML CARP\\VIAL IV PRN (18:45)
[2023-02-11] MEDS ORDERED: oxyCODONE/ACETAMINOPHEN 5mg/325mg TAB PO PRN ×2 (18:45)
[2023-02-11] MEDS ORDERED: diphenhydrAMINE 50 MG/ML VIAL IV PRN (18:45)
[2023-02-11] MEDS: PIPERACILLIN/TAZOBACTAM 4.5 GM in DEXTROSE 5% 100 ML IV SCH (19:43)
[2023-02-12] MEDS: ACETAMINOPHEN 1,000 MG/100 ML VIAL IV PRN ×2 (00:10→09:21)
[2023-02-12] MEDS: PIPERACILLIN/TAZOBACTAM 4.5 GM in DEXTROSE 5% 100 ML IV SCH ×3 (03:05→20:24)
[2023-02-12 08:46] LABS: Basophils # (auto) 0.01 K/uL (0-0.2); Basophils % (auto) 0.1 %; Hematocrit (blood only) 31.8 % (42.0-52.0); Hemoglobin 11.1 g/dl (14.0-18.0); Immature Granulocytes # (auto) 0.06 K/uL (0.01-0.20); Immature Granulocytes % (auto) 0.5 %; Lymphocytes # (auto) 0.99 K/uL (1.2-3.4); Lymphocytes % (auto) 7.8 %; Mean Corpuscular Hemoglobin 30.9 pg (25.0-34.0); Mean Corpuscular Hgb Conc 34.9 g/dL (32.0-36.0); Mean Corpuscular Volume 88.6 fL (80.0-100.0); Mean Platelet Volume 9.6 fL (9.4-12.4); Monocytes # (auto) 0.62 K/uL (0.11-0.59); Monocytes % (auto) 4.9 %; Neutrophils # (auto) 10.94 K/uL (1.40-6.50); Neutrophils % (auto) 86.7 %; Platelet Count 328 K/uL (130-400); RDW Coefficient of Variation 12.5 % (11.5-14.5); RDW Standard Deviation 40.8 fL (36.4-46.3); Red Blood Count 3.59 M/uL (4.70-6.10); White Blood Count 12.62 K/ul (4.8-10.8)
[2023-02-12] MEDS: ENOXAPARIN INJ 40 MG/0.4 ML SYR SQ SCH (09:04)
[2023-02-12 09:20] LABS: Albumin Globulin Ratio 1.1 (0.9-2); Albumin Level 3.5 gm/dl (3.4-5.0); BUN Creatinine Ratio 14.8 (10-20); Bilirubin,Total 0.9 mg/dl (0.2-1.0); Calcium 8.6 mg/dl (8.6-10.3); Creatinine Clr Calc Pharmacy 141.2 ml/min; Est GFR (African American) 123.5 ml/min; Est GFR (Non-African American) 106.6 ml/min; Globulin 3.2 gm/dl (2.5-4.0); Potassium 4.1 mmol/L (3.5-5.1); Total Protein 6.7 gm/dl (6.0-8.3)
--- NOTE | 2023-02-12 13:39 | Surgery Progress Note ---
Date of Service February 12, 2023 Assessment & Plan (1) Acute cholecystitis: Plan: POD # 1 s/p lap miriam avss postop pain moderate likely atelectasis as only taking shallow breaths no n,v t. bili normalized leukocytosis improved Plan: Continue pain management as needed Continue IV abx Continue nadir drain to bulb suction advance to low fat diet encouraged incentive spirometry and ambulation scds, lovenox for dvt prophylaxis repeat am cbc Discussed with Dr. Perez who agrees with above. Admission and Anticipated Discharge Date Admission Date: February 11, 2023 Subjective feeling okay pain moderate at incision sites, has not had anything so far this morning no shortness of breath or chest pain but unable to take deep breaths, on oxygen via nasal cannula 5 liters no n,v, tolerated clear liquids urinating has not ambulated hallway Physical Exam Constitutional: WD/WN, vitals as above cooperative and comfortable; no acute distress, not ill appearing and not diaphoretic Respiratory: normal respiratory effort; no respiratory distress oxygen via nasal cannula Gastrointestinal (Abdomen): Inspection/Auscultation: abdomen normal to inspection, normal bowel sounds, + abdominal surgical incision (clean/dry/intact) and + abdominal surgical drain present (serosanguineous); abdomen not distended Percussion/Palpation: + abdomen tender (at incision sites and drain site) and abdomen soft; no guarding, abdomen not rigid and abdomen not firm Skin: no rashes, warm and dry no jaundice Psychiatric: Orientation: alert and oriented x 3 Results & Data Vital Signs (Past 12 Hours) Vital Signs Temp Pulse Resp BP Pulse Ox Pulse Ox O2 Del Method 02/12/23 09:00 95 02/12/23 08:57 Nasal Cannula 02/12/23 06:22 36.4 C L 72 16 107/69 95 Nasal Cannula 02/12/23 03:00 36.4 C L 68 16 107/68 95 Nasal Cannula O2 Del Method O2 Flow Rate O2 Flow Rate 02/12/23 09:00 Nasal Cannula 5 02/12/23 08:57 5 02/12/23 06:22 5 02/12/23 03:00 5 Laboratory Results 02/12/23 02/12/23 02/11/23 Range/Units 07:41 07:41 Unknown WBC 12.62 H (4.8-10.8) K/ul RBC 3.59 L (4.70-6.10) M/uL Hgb 11.1 L (14.0-18.0) g/dl Hct 31.8 L (42.0-52.0) % MCV 88.6 (80.0-100.0) fL MCH 30.9 (25.0-34.0) pg MCHC 34.9 (32.0-36.0) g/dL RDW Std Deviation 40.8 (36.4-46.3) fL RDW Coeff of Akanksha 12.5 (11.5-14.5) % Plt Count 328 (130-400) K/uL MPV 9.6 (9.4-12.4) fL Immature Gran % (Auto) 0.5 % Neut % (Auto) 86.7 % Lymph % (Auto) 7.8 % [place] % (Auto) 4.9 % Eos % (Auto) 0.0 % Baso % (Auto) 0.1 % Neut # (Auto) 10.94 H (1.40-6.50) K/uL Lymph # (Auto) 0.99 L (1.2-3.4) K/uL [place] # (Auto) 0.62 H (0.11-0.59) K/uL Eos # (Auto) 0.00 (0-0.50) K/uL Baso # (Auto) 0.01 (0-0.2) K/uL Immature Gran # (Auto) 0.06 (0.01-0.20) K/uL Sodium 135 L (136-145) mmol/L Potassium 4.1 (3.5-5.1) mmol/L Chloride 102 (98-107) mmol/L Carbon Dioxide 24 (21-32) mmol/L Anion Gap 9 (3-11) BUN 12 (6-23) mg/dl Creatinine 0.81 (0.6-1.4) mg/dl Est Cr Clr Drug Dosing 141.2 ml/min Est GFR ( Amer) 123.5 ml/min Est GFR (Non-Af Amer) 106.6 ml/min BUN/Creatinine Ratio 14.8 (10-20) Glucose 153 H (70-99(Fasting)) mg/dl Calcium 8.6 (8.6-10.3) mg/dl Total Bilirubin 0.9 D (0.2-1.0) mg/dl AST 28 (13-39) U/L ALT 45 (7-52) U/L Alkaline Phosphatase 57 (34-104) U/L Total Protein 6.7 (6.0-8.3) gm/dl Albumin 3.5 (3.4-5.0) gm/dl Globulin 3.2 (2.5-4.0) gm/dl Albumin/Globulin Ratio 1.1 (0.9-2) SARS-CoV-2, RNA, NAAT NEGATIVE (NEGATIVE)
[2023-02-13] MEDS: ACETAMINOPHEN 1,000 MG/100 ML VIAL IV PRN (03:12)
[2023-02-13] MEDS: PIPERACILLIN/TAZOBACTAM 4.5 GM in DEXTROSE 5% 100 ML IV SCH (04:02)
[2023-02-13 08:13] LABS: Basophils # (auto) 0.03 K/uL (0-0.2); Basophils % (auto) 0.3 %; Eosinophils # (auto) 0.06 K/uL (0-0.50); Eosinophils % (auto) 0.7 %; Hemoglobin 10.5 g/dl (14.0-18.0); Immature Granulocytes # (auto) 0.03 K/uL (0.01-0.20); Immature Granulocytes % (auto) 0.3 %; Lymphocytes # (auto) 1.94 K/uL (1.2-3.4); Lymphocytes % (auto) 22.3 %; Mean Corpuscular Hemoglobin 31.1 pg (25.0-34.0); Mean Corpuscular Hgb Conc 33.9 g/dL (32.0-36.0); Mean Corpuscular Volume 91.7 fL (80.0-100.0); Mean Platelet Volume 9.4 fL (9.4-12.4); Monocytes # (auto) 0.47 K/uL (0.11-0.59); Monocytes % (auto) 5.4 %; Neutrophils # (auto) 6.16 K/uL (1.40-6.50); Platelet Count 358 K/uL (130-400); RDW Coefficient of Variation 12.8 % (11.5-14.5); RDW Standard Deviation 42.9 fL (36.4-46.3); Red Blood Count 3.38 M/uL (4.70-6.10); White Blood Count 8.69 K/ul (4.8-10.8)
[2023-02-13 08:42] LABS: Albumin Level 3.2 gm/dl (3.4-5.0); BUN Creatinine Ratio 13.9 (10-20); Bilirubin,Total 0.7 mg/dl (0.2-1.0); Calcium 8.3 mg/dl (8.6-10.3); Creatinine Clr Calc Pharmacy 105.9 ml/min; Est GFR (African American) 94.9 ml/min; Est GFR (Non-African American) 81.9 ml/min; Globulin 3.1 gm/dl (2.5-4.0); Potassium 3.9 mmol/L (3.5-5.1); Total Protein 6.3 gm/dl (6.0-8.3)
--- NOTE | 2023-02-13 09:35 | Discharge Summary ---
Date of Service February 13, 2023 Admission HPI Per Admitting Provider 47-year-old gentleman with no significant past medical history presents to the emergency department with approximately 1 week history of right upper quadrant and epigastric abdominal pain. The pain worsened significantly on Friday. Has been worsening since then. He states that he had fevers and chills approximately 2 weeks ago. He did have a cellulitis of his left lower extremity which was treated with clindamycin. He states that he thought some of his abdominal pain was due to the clindamycin. He denies nausea, vomiting, fevers or chills currently. He has not been eating a lot, last ate yesterday. White blood cell count is 18. CT scan demonstrates severe acute cholecystitis. Principal Diagnosis Acute calculous cholecystits Discharge Exam Constitutional WD/WN, vitals as above healthy appearing, cooperative and comfortable; no acute distress and not ill appearing Respiratory normal respiratory effort; no respiratory distress Gastrointestinal (Abdomen) Inspection/Auscultation: abdomen normal to inspection, + abdominal surgical incision (clean/dry/intact with dermabond) and + abdominal surgical drain present (serous); abdomen not distended and + abnormal bowel sounds Percussion/Palpation: + abdomen tender (mild at incision sites) and abdomen soft; no guarding and abdomen not rigid Skin no rashes, warm and dry no jaundice Psychiatric A+Ox3, euthymic affect Discharge Data Allergies Allergy/AdvReac Type Severity Reaction Status Date / Time No Known Allergies Allergy Verified 02/03/23 11:49 Procedures Performed Operation Date: 02/11/23 11:25 Actual Procedures p Laparoscopic Cholecystectomy(Not Applicable) - Antonio Perez MD Ordered Studies 02/11/23 11:09 CT abd pelvis IV con only Stat Hospital Course (1) Acute cholecystitis: Patient was taken to operting room for laparoscopic cholecystectomy from emergency department on 02/11/[address] Perez. Patient was found to have significant purulent acute cholecystitis with luis antonio pus in the abdomen. Patient also found to have hydrops of gallbladder with a pus filled gallbladder. Suha ent tolerated procedure without difficulty. Surgical was placed given extensive inflammatory infections findings preoperatively. Patient transferred to recovery then to medical/surgical floor for postop care. Diet advanced to clear liquids, IV Zosyn continued, IV pain management and PO Pain management as needed, activity as tolerated, SCDs and lovenox for DVT prophylaxis was ordered. POD # 1 avss however was requiring 5 liters of oxygen via nasal cannula. No shortness of breath but likely atelectasis due to abdominal splinting. Incentive spirometry highly recommended. Patients diet was advanced to low fat on POD # 1. Encouraged ambulation. He was evaluated in afternoon and no longer requiring oxygen via nasal cannula and pain was better controlled. POD# 2 avss, no longer requiring oxygen , pain controlled, tolerating diet. Rayshawn drain with serosanguineous output, nonbilious. WBC and t. bili normal on POD # 1 and POD # 2. Patient was discharged home on POD # 2 in stable condition. Rayshawn drain was removed prior to discharge. Total Time Total Time Spent Total Time Spent (In Minutes): 30 Total Time Includes: Examination of the Patient, Discharge Planning and Medication Reconciliation Discharge Plan Discharge Items Patient Disposition: Home - Self-Care Reason For Visit: POSTOP LAPAROSCOPIC CHOLECYSTECTOMY FOR ACUTE CHOL Discharge Diagnosis: Severe acute calculous cholecystitis Activity: Per Instructions section Non-emergency contact: Primary Care Provider and Surgeon Call non-emergency contact if: you have any medication questions, your pain is not controlled, your pain is worsening, your pain is concerning for you, you have a fever, your temperature is above 101, your wound has increased redness, your wound has increased drainage and your wound pain has increased Follow-up/Referrals: Antonio Perez MD [Physician] - (2 weeks) Armando Mo MD [Primary Care Provider] - Diet: Regular Addtl Attending Provider Instructions: Post-Surgical ~Discharge Instructions Activity Recommendations: - lifting limitation: (20 pounds for 3 weeks), - exercise/sex/sports limit: (nonstrenuous for 2 weeks), - driving or machine use limit: (none for 1 week or until pain free and no longer taking narcotic pain medication), - Shower/bathe limit: (may shower, no submerging incisions underwater for 2 weeks) Diet: - Resume previous diet SPECIAL CARE INSTRUCTIONS: - May shower. - Surgical glue will fall off on its own, do not pick at it - Call the surgeon's office with any questions or concerns - - (ex. temperature higher than 101 degrees F, excessive bleeding or pain). MEDICATIONS: - Resume previous medications unless instructed otherwise by your surgeon. - May alternate extra strength Tylenol and Ibuprofen as needed for mild to moderate pain -650 mg Tylenol every 6 hours as needed - Ibuprofen 600 mg every 6 hours as needed (take with food) - Percocet 1 every 6 hours, as needed for moderate to severe pain - Recommend daily stool softener (Colace) while taking narcotic pain medication to prevent constipation or straining. drink plenty of water daily - Take antibiotics as prescribed for entire course FOLLOW UP VISIT: - If not already scheduled, please call the office to schedule a two week follow-up appointment. Office number Pending Studies at Discharge: Yes (gallbladder pathology, will be reviewed at postop visit) Stand-Alone Forms: My [facility] [employer], Smoking Cessation Medications and DC Order Prescriptions: New amoxicillin-pot clavulanate 875-125 mg tablet 1 tab PO BID Qty: 10 0RF oxycodone-acetaminophen [Percocet] 5-325 mg tablet 1 tab PO Q6H PRN (Reason: pain) Qty: 5 0RF Continued multivitamin Tablet 1 tab PO DAILY Discontinued clindamycin HCl 1 cap PO TID Rx Instructions: pt unsure of dose Discharge Orders: Discharge Order (Routine); Ordered 02/13/23 Ordered By: Nadia Marti Admission Data Admit Date/Time: 02/11/23 17:08 Attending Provider: Antonio Perez Admit Provider: Antonio Perez Primary Care Provider: Armando Mo
[2023-02-13] MEDS: ENOXAPARIN INJ 40 MG/0.4 ML SYR SQ SCH (11:36)
== END 2023-02-13 13:17 | disposition home or self-care (01) ==
LOC: ED 10:42 → 3N 14:56 → OR 14:56